=== PATIENT | male | born 2000 | race Caucasian/White ===

== ENCOUNTER 2023-08-15 11:33 | Emergency (ER) | payer OTHER, SELFPAY ==
[2023-08-15 11:44] VITALS: BP 130/77; PULSE 88; RESP 16; TEMP 36.9; O2SAT 96
--- NOTE | 2023-08-15 12:06 | ED.GENADULT ---
HPI - General Adult General Chief complaint: Upper Respiratory Infection Stated complaint: Sinus Infection Symptoms Source: patient Mode of arrival: ambulatory Limitations: no limitations History of Present Illness HPI narrative: Patient presents for evaluation of sick symptoms for last 8 days. Symptoms include sinus congestion, mucopurulent discharge from the nares, postnasal drainage, productive cough green sputum, and diaphoresis. No chills, sore throat, nausea, vomiting, and diarrhea. His mother is here being evaluated for a cough. He is not taking any medications to assist with his symptoms. He does not smoke. Related Data Allergies Allergy/AdvReac Type Severity Reaction Status Date / Time No Known Allergies Allergy Unverified 08/12/16 00:08 Review of Systems Review of Systems: CONSTITUTIONAL: Reports diaphoresis Denies fever, chills, or sweats. EYES: Denies visual changes, redness, or discharge. ENT: Reports sinus congestion and mucopurulent discharge from the nares. Denies sore throat or otalgia. CARDIOVASCULAR: Denies chest pain, palpitations, or edema. RESPIRATORY: Reports productive cough of green sputum GASTROINTESTINAL: Denies abdominal pain, nausea, vomiting, or diarrhea. GENITOURINARY: Denies dysuria or hematuria. SKIN: Denies rash or itching. MUSCULOSKELETAL: Denies back pain, joint pain, or myalgia. NEUROLOGIC: Reports headache. Deniesnumbness, dizziness, or weakness. PSYCHIATRIC: Denies anxiety or depression. PMFSH Past Medical History Medical History No pertinent past medical history Surgical History Surgical History No pertinent past surgical history Family History Family History Father Family history non-contributory Social History Social History Smoking status: Never smoker Alcohol intake: never Substance use: never Living arrangements: with family Gender identity (if verbalized by the patient): Male Spiritual care concerns: No Exam Narrative: GENERAL: Well-appearing, well-nourished, and in no acute distress. HEAD: Normocephalic, atraumatic. EYES: PERRLA and EOMI. ENT: there is frontal and bilateral maxillary sinus tenderness. There is thick yellow drainage in the nares. Oropharynx without tonsillar hypertrophy exudate or other lesions. Bilateral TMs pearly miles nonbulging NECK: Supple. No adenopathy or masses. No carotid bruits or JVD CHEST: Clear to auscultation. No respiratory distress. No wheezes rales or rhonchi HEART: Regular rate and rhythm. No murmur heard. Normal peripheral pulses. ABDOMEN: Soft, nontender, nondistended, normal active bowel sounds. EXTREMITIES: Normal range of motion. No edema. SKIN: Warm, dry, no rash. NEURO: No focal deficits. Alert and oriented x3. PSYCH: Normal mood and affect. Course Course Emergency Course: This is a 22-year-old male who presented for evaluation of sinus symptoms. He meets criteria for acute bacterial sinusitis based upon duration of time in which he has been symptomatic and nature of his discharge. Will proceed with augmentin. Follow up with primary provider. Go to the ER for worsening symptoms. Pt in agreement with plan of care. Level of Care: Express Care Visit Vital Signs Vital signs: Vital Signs Temperature 36.9 C 08/15/23 11:44 Pulse Rate 88 08/15/23 11:44 Respiratory Rate 16 08/15/23 11:44 Blood Pressure 130/77 08/15/23 11:44 Pulse Oximetry 96 08/15/23 11:44 Temperature 36.9 C 08/15/23 11:44 Pulse Rate 88 08/15/23 11:44 Respiratory Rate 16 08/15/23 11:44 Blood Pressure 130/77 08/15/23 11:44 Pulse Oximetry 96 08/15/23 11:44 Medical Decision Making Vital Signs Vital Signs: Vital Signs Temperat
== END 2023-08-15 12:10 | disposition home or self-care (01) ==
PROVIDERS: Emergency Provider Nurse Practitioner; PCP Family Medicine
DX: J01.90 Acute sinusitis, unspecified (principal)
CPT/HCPCS: 99203; G0463

== ENCOUNTER 2024-01-18 16:54 | Emergency (ER) | payer OTHER, SELFPAY ==
[2024-01-18 17:07] VITALS: BP 135/77; PULSE 96; RESP 16; TEMP 36.8; O2SAT 99
--- NOTE | 2024-01-18 17:09 | ED.URI ---
HPI - URI/Sore Throat General Chief Complaint: Upper Respiratory Infection Stated Complaint: CONGESTION/SORE THROAT/EARACHE Time Seen by Provider: 01/18/24 17:13 Source: patient, RN notes reviewed and old records reviewed Mode of arrival: ambulatory Limitations: no limitations History of Present Illness HPI Narrative: 23 year old male presents to [facility] care with complaints of one week duration of nasal congestion with drainage and some throat pain and some right ear discomfort. Patient reports that he has noted some greenish nasal drainage and also has noted some post nasal drainage. Patient reports that he has taken some Ibuprofen for his discomfort. MD elicited complaint: cough, sore throat and other (ear pain) Pertinent past history: other (sinusitis) Onset (ago): week(s) (1) Severity: moderate Description of mucous: green Able to tolerate fluids by mouth: Yes Treatments prior to arrival: ibuprofen Related Data Home Medications ?Medication ?Instructions ?Recorded ?Confirmed ?Last Taken ?Type No Home Medications 01/18/24 01/18/24 Unknown History Allergies Allergy/AdvReac Type Severity Reaction Status Date / Time No Known Allergies Allergy Unverified 08/12/16 00:08 Review of Systems Review of Systems: CONSTITUTIONAL: Denies malaise, chills, sweats, or fever. EYES: Denies visual changes, redness, or discharge. ENT: Reports rhinorrhea, congestion, sinus pressure,right otalgia and positive for sore throat. CARDIOVASCULAR: Denies chest pain, palpitations, or edema. RESPIRATORY: Reports no acute cough.? Denies dyspnea. GASTROINTESTINAL: Denies abdominal pain, nausea, vomiting, diarrhea SKIN: Denies rash or itching. MUSCULOSKELETAL: Denies myalgia. NEUROLOGIC: Denies headache. All systems reviewed & are unremarkable except as noted in HPI and below PMFSH Past Medical History Medical History Esophagitis Sinusitis, acute Surgical History Surgical History No pertinent past surgical history Family History Family History Father Family history non-contributory Social History Social History Smoking status: Never smoker Alcohol intake: never Substance use: never Living arrangements: with family Gender identity (if verbalized by the patient): Male Spiritual care concerns: No Comments At time of signature, agree with nursing past medical, surgical, social and family history. There is no relevant family history pertinent to the presenting complaint Exam Narrative: GENERAL: Well-appearing, well-nourished, and in no acute distress. HEAD: Normocephalic EYES: PERRLA, conjunctivae clear ENT: Nares clear, turbinates edematous and erythematous, clear to greenish discharge. Mucous membranes moist. TM pearly miles with dull light reflex bilaterally; no tragal tenderness. Oropharynx erythematous without lesions. Tonsils red enlarged and without exudate, no drooling, no hoarseness, no trismus, uvula midline.post nasal drainage NECK: Supple. lymphadenopathy CHEST: Clear to auscultation, breath sounds equal. No wheezing, rhonchi, rales, or stridor. No respiratory distress, speaks in full sentences.SAO2 99% on room air HEART: Regular rate and rhythm. No murmur heard. SKIN: Warm, dry, no rash. NEURO: Alert and oriented x3. PSYCH: Normal mood and affect Course Course Emergency Course: Patient is aware of diagnosis, understands and agrees to treatment plan.? Anticipatory guidance given.? Patient agrees to follow-up as directed and is aware of reasons to seek care at the emergency department. Portions of this record may have been created with voice recognition software Level of Care: Express Care Visit Vital Signs Vital signs: Vital Signs Temperature 36.8 C 01/18/24 17:07 Pulse Rate 96 01/18/24 17:07 Respiratory Rate 16 01/18/24 17:07 Blood Pressure 135/77 01/18/24 17:07 Pulse Oximetry 99 01/18/24 17:07 Temperature 36.8 C 01/18/24 17:07 Pulse Rate 96 01/18/24 17:07 Respiratory Rate 16 01/18/24 17:07 Blood Pressure 135/77 01/18/24 17:07 Pulse Oximetry 99 01/18/24 17:07 Reviewed MDM - URI/Sore Throat MDM Narrative Medical decision making narrative: Differential diagnosis considered: Zelaya virus, strep pharyngitis, allergic rhinitis, upper respiratory tract infection, sinusitis, rhinosinusitis, nasopharyngitis. viral pharyngitis, otitis media, otitis externa, pneumonia, bronchitis, viral cough syndrome, viral syndrome, and influenza.? Exam findings show no acute concerns or changes; patient is non-toxic appearing and is in no distress.? Patient is appropriate for outpatient treatment and follow-up. Differential Diagnosis Differential diagnosis: Likely upper respiratory infection, sinusitis and pharyngitis Medical Records Attestation: I reviewed the patient's medical records. Lab Data Attestation: I reviewed the patient's lab results. Lab results narrative: strep screen negative,culture sent Labs: Lab Results 01/18/24 Range/Units 17:44 POC Grp A Strep Screen Negative (Negative) Critical Care Time Critical Care Time Critical Care Time: No Discharge Plan Discharge Clinical Impression: Rhinosinusitis Patient Disposition: Home, Self-Care Condition: Stable Instructions: Antibiotic Form, Rhinosinusitis (ED) Additional Instructions: Increase fluids especially juices and water [id number] cough and cold medicine of your choice for your symptoms Zyrtec Claritin or Jayde daily Steroids as directed--take with food heat to the face 20-30 minutes 4-6 times a day for pain Salt water gargles, throat lozenges or throat sprays as desired Antibiotic as directed--finished the medication If your symptoms persist, change or worsen significantly before you can contact your personal physician then please, without delay, go to the emergency department for further evaluation. Follow-up with PCP in 7-10 days or sooner if needed Follow up with PCP soon in regards to your blood pressure which is elevated above threshold for referral. Blood pressure above 120/80 may indicate pre-hypertension.135/77 Patient Language: Turkmen Prescriptions: New amoxicillin-pot clavulanate 875-125 mg tablet 1 tablet PO Q12H Qty: 20 0RF Rx Instructions: take with food recommend taking probiotic or eating Activia yogurt while taking this medication methylprednisolone [Medrol (Harpal)] 4 mg tablets,dose pack See Rx Instructions .ROUTE .COMPLEX Qty: 21 0RF Rx Instructions: orally per package directions No Action No Home Medications Follow-up/Referrals: Jaxson Lima MD [Primary Care Provider] - Time of Disposition: 17:33 Quality Rhea Coma Scale Eyes: Open Verbal: Oriented and Alert Motor: Follows Commands [place] Coma Total Score: 15
[2024-01-18 17:49] LABS: EDSTREPNEGPOS1 Negative (Negative)
== END 2024-01-18 17:36 | disposition home or self-care (01) ==
PROVIDERS: Emergency Provider Registered Nurse; PCP Family Medicine
DX: J32.9 Chronic sinusitis, unspecified (principal)
CPT/HCPCS: 87081; 87880; 99213; G0463